=== PATIENT | male | born 1955 | race Caucasian/White ===

== ENCOUNTER 2020-11-13 11:44 | Emergency (ER) | payer MEDICARE ==
[2020-11-13] MEDS ORDERED: IBUPROFEN 600 MG TABLET ONE (12:43)
[2020-11-13] MEDS ORDERED: ACETAMINOPHEN EXTRA STRENGTH 500 MG TABLET ONE (12:43)
[2020-11-13 13:11] LABS: EOSINOPHILS % (AUTO) 4.1 % (0.0-8.0); HEMATOCRIT 42.3 % (42-54); LYMPHOCYTES % (AUTO) 33.2 % (21.0-51.0); MEAN CORPUSCULAR HEMOGLOBIN 29.2 pg (27.0-33.0); MEAN CORPUSCULAR HGB CONC 34.3 g/dL (32.0-36.0); MEAN CORPUSCULAR VOLUME 85.3 fL (79-99); MONOCYTES % (AUTO) 4.3 % (3.0-13.0); NEUTROPHILS % (AUTO) 56.6 % (40.0-77.0); PLATELET COUNT (AUTO) 169 K/uL (130-400); RED BLOOD CELL COUNT(AUTO) 4.96 MIL/uL (4.50-6.20); RED CELL DISTRIBUTION WIDTH 12.4 % (11.0-15.5); WHITE BLOOD COUNT (AUTO) 5.1 K/uL (4.8-10.8)
[2020-11-13 13:21] LABS: CREATININE 1.2 mg/dL (0.5-1.5)
[2020-11-13 13:26] LABS: BILIRUBIN,TOTAL 0.5 mg/dL (0.2-1.0); CRP QUANTITATIVE 3.6 mg/L (0.00-9.0); TOTAL PROTEIN, SERUM 7.3 g/dL (6.0-8.3)
== END 2020-11-13 14:39 | disposition home or self-care (01) ==
LOC: EDH 11:44
DX: M25.551 Pain in right hip (principal); E11.9 Type 2 diabetes mellitus without complications; Z87.891 Personal history of nicotine dependence; Z91.041 Radiographic dye allergy status; Z88.6 Allergy status to analgesic agent; Z88.1 Allergy status to other antibiotic agents
CPT/HCPCS: 36415; 73502; 80053; 85025; 86140

== ENCOUNTER → 2022-03-22 | Outpatient (CLI) | payer MEDICARE | END | disposition home or self-care (01) | LOC: RAH 10:06 | PROVIDERS: ATTEND Family Medicine | DX: M54.50 Low back pain, unspecified (principal) | CPT/HCPCS: 72100 ==

== ENCOUNTER 2023-04-12 08:43 | Day surgery (SDC) | payer MEDICARE ==
[2023-04-07 13:10] LABS: BASOPHILS # (AUTO) 0.02 K/uL (0.00-0.20); BASOPHILS % (AUTO) 0.2 % (0.0-5.0); CREATININE 1.1 mg/dL (0.5-1.5); IMMATURE GRANULOCYTE ABSOLUTE 0.03 K/uL (0-1); INR 0.98 (0.85-1.15); LYMPHOCYTES # (AUTO) 0.9 K/uL (1.0-4.8); LYMPHOCYTES % (AUTO) 10.8 % (21.0-51.0); MEAN CORPUSCULAR HGB CONC 33.9 g/dL (32.0-36.0); MEAN CORPUSCULAR VOLUME 88.6 fL (79-99); MONOCYTES # (AUTO) 0.2 K/uL (0.1-1.0); MONOCYTES % (AUTO) 2.3 % (3.0-13.0); NEUTROPHILS % (AUTO) 86.3 % (40.0-77.0); PLATELET COUNT (AUTO) 159 K/uL (130-400); POTASSIUM 4.6 mmol/L (3.5-5.1); PROTHROMBIN TIME 11.4 SEC (9.6-11.6); RED BLOOD CELL COUNT(AUTO) 4.63 MIL/uL (4.50-6.20); RED CELL DISTRIBUTION WIDTH 12.5 % (11.0-15.5); WHITE BLOOD COUNT (AUTO) 8.1 K/uL (4.8-10.8)
[2023-04-07 13:12] LABS: PARTIAL THROMBOPLASTIN TIME 26.5 SEC (26.3-35.5)
[2023-04-07 13:55] VITALS: BP 147/72; PULSE 48; RESP 18
[~2023-04-12] VITALS: Ht 182.9 cm; Wt 135.9 kg
[2023-04-12] VITALS (17 sets, daily range): BP systolic 105–145; BP diastolic 6–83; PULSE 51–66; RESP 10–17
[~2023-04-12 08:43] MED LIST: INSLAN SQ
[2023-04-12] MEDS ORDERED: 0.9%NACL 1000ML 1,000 ML IV ONE (09:02)
[2023-04-12 09:54] LABS: ALBUMIN 3.9 g/dL (3.5-5.0); BILIRUBIN,TOTAL 1.4 mg/dL (0.2-1.0); CREATININE 1.1 mg/dL (0.5-1.5); POTASSIUM 4.7 mmol/L (3.5-5.1); TOTAL PROTEIN, SERUM 7.6 g/dL (6.0-8.3)
[2023-04-12] MEDS ORDERED: DEXAMETHASONE SOD PHOSPHATE 10MG/ML 1ML VIAL ONE (10:18)
[2023-04-12] MEDS ORDERED: LIDOCAINE PF 100MG/5ML (2%) SYRINGE 5ML ONE (10:18)
[2023-04-12] MEDS ORDERED: SUCCINYLCHOLINE CHLORIDE 20 MG/ML 10 ML VIAL ONE (10:18)
[2023-04-12] MEDS ORDERED: GLYCOPYRROLATE 1 MG/5 ML SYRINGE ONE (10:19)
[2023-04-12] MEDS ORDERED: NEOSTIGMINE 5MG/5ML SYR IV ONE (10:19)
[2023-04-12] MEDS ORDERED: ONDANSETRON 4MG INJ ONE ×2 (10:19→14:19)
[2023-04-12] MEDS ORDERED: MIDAZOLAM HCL 1 MG/ML 2ML VIAL ONE (10:19)
[2023-04-12] MEDS ORDERED: PROPOFOL 10 MG/ML 20ML VIAL IV ONE (10:19)
[2023-04-12] MEDS ORDERED: ROCURONIUM 10MG/1ML SYR 10 MG/ML ML ONE (10:19)
[2023-04-12] MEDS ORDERED: FENTANYL CITRATE PF 50 MCG/1 ML 2ML VIAL ONE ×2 (10:20→14:40)
[2023-04-12] MEDS ORDERED: BUPIVACAINE/PF 0.25% 30ML VIAL IJ ONE (12:06)
[2023-04-12] MEDS ORDERED: KETOROLAC 30MG VIAL (30MG/ML) ONE (13:30)
[2023-04-12] MEDS ORDERED: MEPERIDINE-PF 25 MG/ML SYG ONE ×2 (14:19→14:30)
[2023-04-13] MEDS ORDERED: CEPH500B PO (03:49)
[2023-04-13] MEDS ORDERED: TAMS-1 PO (03:49)
== END 2023-04-12 18:48 | disposition home or self-care (01) ==
LOC: DAH 08:43
PROVIDERS: ATTEND Surgery
DX: K51.20 Ulcerative (chronic) proctitis without complications (principal); Z20.822 Contact with and (suspected) exposure to COVID-19; K62.89 Other specified diseases of anus and rectum; E66.01 Morbid (severe) obesity due to excess calories; E11.9 Type 2 diabetes mellitus without complications; Z79.899 Other long term (current) drug therapy; Z79.01 Long term (current) use of anticoagulants; Z90.49 Acquired absence of other specified parts of digestive tract; Z98.890 Other specified postprocedural states; Z88.8 Allergy status to other drugs, medicaments and biological substances; Z80.0 Family history of malignant neoplasm of digestive organs; Z80.51 Family history of malignant neoplasm of kidney; Z80.6 Family history of leukemia; Z68.41 Body mass index [BMI] 40.0-44.9, adult
CPT/HCPCS: 93005; 87426; 80048; 85025; 85610; 85730; 36415 ×2; 45172; 80053; 82948 ×3; 88305; A6260; A4663; A4606; J3010 ×2; J3490 ×2; J1100; J2710; J0330; J7030; J2001; J2250; J2704; J2405 ×2; J1885; J2175 ×2; A4649; A4215; A4223; A4222; A4221; A4600

== ENCOUNTER 2023-04-13 01:10 | Emergency (ER) | payer MEDICARE ==
[~2023-04-13] VITALS: Ht 182.9 cm; Wt 135.2 kg
[2023-04-13] MEDS ORDERED: HYDROMORPHONE 0.5 MG SYG (0.5MG/0.5ML) ONE (01:35)
[2023-04-13] MEDS ORDERED: HYDROMORPHONE 0.5 MG SYG (0.5MG/0.5ML) IVP ONE (02:00)
[2023-04-13] MEDS ORDERED: TAMSULOSIN HCL 0.4 MG CAP.ER.24H ONE (02:04)
[2023-04-13 02:12] LABS: BASOPHILS # (AUTO) 0.02 K/uL (0.00-0.20); BASOPHILS % (AUTO) 0.2 % (0.0-5.0); EOSINOPHILS # (AUTO) 0.12 K/uL (0.00-0.70); EOSINOPHILS % (AUTO) 1.3 % (0.0-8.0); HEMATOCRIT 40.9 % (42-54); IMMATURE GRANULOCYTE ABSOLUTE 0.03 K/uL (0-1); LYMPHOCYTES % (AUTO) 11.6 % (21.0-51.0); MEAN CORPUSCULAR HEMOGLOBIN 29.7 pg (27.0-33.0); MEAN CORPUSCULAR HGB CONC 34.2 g/dL (32.0-36.0); MEAN CORPUSCULAR VOLUME 86.7 fL (79-99); MONOCYTES # (AUTO) 0.5 K/uL (0.1-1.0); MONOCYTES % (AUTO) 5.7 % (3.0-13.0); NEUTROPHILS # (AUTO) 7.2 K/uL (1.8-7.7); NEUTROPHILS % (AUTO) 80.9 % (40.0-77.0); PLATELET COUNT (AUTO) 139 K/uL (130-400); RED BLOOD CELL COUNT(AUTO) 4.72 MIL/uL (4.50-6.20); RED CELL DISTRIBUTION WIDTH 12.5 % (11.0-15.5); WHITE BLOOD COUNT (AUTO) 8.9 K/uL (4.8-10.8)
[2023-04-13 02:22] LABS: CREATININE 1.7 mg/dL (0.5-1.5); POTASSIUM 4.6 mmol/L (3.5-5.1)
[2023-04-13 02:25] LABS: APPEARANCE,URINE TURBID (CLEAR); BILIRUBIN,URINE NEGATIVE (NEGATIVE); COLOR,URINE ORANGE (YELLOW); GLUCOSE, URINE (UA) 30 mg/dL (NEGATIVE); KETONES,URINE NEGATIVE (NEGATIVE); LEUKOCYTE ESTERASE ,URINE 500 Leu/uL (NEGATIVE); NITRATE,URINE NEGATIVE (NEGATIVE); OCCULT BLOOD,URINE LARGE (NEGATIVE); PH,URINE 5.5 (5.0-8.0); PROTEIN,URINE 100 mg/dL (NEGATIVE)
[2023-04-13 02:28] LABS: ALBUMIN 3.5 g/dL (3.5-5.0); BILIRUBIN,TOTAL 1.8 mg/dL (0.2-1.0); TOTAL PROTEIN, SERUM 6.9 g/dL (6.0-8.3)
[2023-04-13 02:28] LABS: ADD UA MICROSCOPIC YES
[2023-04-13] MEDS ORDERED: LACTATED RINGERS 1000ML 2,000 ML IV SCH (02:30)
[2023-04-13] MEDS ORDERED: TAMSULOSIN HCL 0.4 MG CAP.ER.24H PO ONE (02:30)
[2023-04-13 02:32] LABS: BACTERIA,URINE RARE /HPF (None Seen); HYALINE CASTS, URINE 26-50 /LPF (0-1 /LPF); MUCUS,URINE MOD LPF (None Seen); RBC,URINE TNTC /HPF (0-1); SQUAMOUS EPITHELIAL CELL,UR FEW /HPF (0-2); WBC CLUMP MOD /HPF (0-1); WBC,URINE TNTC /HPF (0-1)
[2023-04-13] MEDS ORDERED: TAMS-1 PO (03:49)
[2023-04-13] MEDS ORDERED: CEPH500B PO (03:49)
[2023-04-13] MEDS ORDERED: CEFTRIAXONE 2GM VIAL IVPB ONE ×2 (04:00)
[2023-04-13 04:22] VITALS: BP 138/82; PULSE 88; RESP 16; O2SAT 97
== END 2023-04-13 04:24 | disposition home or self-care (01) ==
LOC: EDH 01:10
DX: T83.018A Breakdown (mechanical) of other urinary catheter, initial encounter (principal); N39.0 Urinary tract infection, site not specified; E11.9 Type 2 diabetes mellitus without complications; Z79.4 Long term (current) use of insulin; Z88.1 Allergy status to other antibiotic agents; Z88.8 Allergy status to other drugs, medicaments and biological substances; Y83.8 Other surgical procedures as the cause of abnormal reaction of the patient, or of later complication, without mention of misadventure at the time of the procedure; Y92.9 Unspecified place or not applicable
CPT/HCPCS: 99284; 96365; 96361; 96375; 80053; 85025; 87070; 87076; 87088; 81001; 36415; 51702; J0696; J1170

== ENCOUNTER → 2025-03-13 | Outpatient (CLI) | payer MEDICARE ==
[~2025-03-13] MED LIST changes: +CEPH500B PO; +TAMS-55 PO
[2025-03-13 22:30] VITALS: PULSE 60; RESP 10
[2025-03-13 23:01] VITALS: PULSE 48; RESP 12
[2025-03-13 23:32] VITALS: PULSE 47; RESP 10
[2025-03-13 23:59] VITALS: PULSE 53; RESP 12
[2025-03-14] VITALS (10 sets, daily range): PULSE 43–66; RESP 10–12
== END | disposition home or self-care (01) ==
LOC: SLP 20:40
PROVIDERS: ATTEND Family Medicine
DX: G47.33 Obstructive sleep apnea (adult) (pediatric) (principal); R40.0 Somnolence; R06.83 Snoring; E66.9 Obesity, unspecified; M54.9 Dorsalgia, unspecified
CPT/HCPCS: 95810

== ENCOUNTER → 2025-03-17 | Outpatient (CLI) | payer MEDICARE ==
[2025-03-17 22:49] VITALS: PULSE 42; RESP 12
[2025-03-17 23:30] VITALS: PULSE 40; RESP 18
[2025-03-18] VITALS (10 sets, daily range): PULSE 38–44; RESP 10–20
== END | disposition home or self-care (01) ==
LOC: SLP 20:35
PROVIDERS: ATTEND Family Medicine
DX: G47.33 Obstructive sleep apnea (adult) (pediatric) (principal); R06.83 Snoring; R09.02 Hypoxemia; E11.9 Type 2 diabetes mellitus without complications; E66.9 Obesity, unspecified; M54.9 Dorsalgia, unspecified; Z68.39 Body mass index [BMI] 39.0-39.9, adult
CPT/HCPCS: 95811